=== PATIENT | male | born 1985 ===

== ENCOUNTER → 2021-09-17 | Day surgery (SDC) | payer OTHER ==
[~2021-09-17] MED LIST: ATORVASTATIN CA20 MG PO; VITAMIN B-121000 MCG PO
== END | disposition home or self-care (01) ==
LOC: OR 06:32
DX: K64.5 Perianal venous thrombosis (principal); K62.89 Other specified diseases of anus and rectum; K64.0 First degree hemorrhoids; L29.0 Pruritus ani; E66.3 Overweight; Z68.26 Body mass index [BMI] 26.0-26.9, adult; Z20.822 Contact with and (suspected) exposure to COVID-19
CPT/HCPCS: J2250; J2704; J7040

== ENCOUNTER 2022-03-31 20:03 | Emergency (ER) | payer SELFPAY ==
[2022-03-31 23:28] LABS: HEMOGLOBIN 14.4 gm/dl (14.0-17.5); WHITE BLOOD COUNT 7.6 K/UL (4.5-11.0)
[2022-04-01 00:07] LABS: BUN/CREATININE RATIO 13 (0-10)
== END 2022-04-01 02:15 | disposition home or self-care (01) ==
LOC: ER1 20:03
PROVIDERS: Nurse Practitioner
DX: R09.1 Pleurisy (principal); E78.5 Hyperlipidemia, unspecified; Z79.899 Other long term (current) drug therapy; Z51.81 Encounter for therapeutic drug level monitoring
CPT/HCPCS: 71045; 80053; 82550; 82553; 84484; 85025; 85379; 85610; 85730; 86140; 93005; 99285; J1885